=== PATIENT | male | born 1965 | race Caucasian/White ===

== ENCOUNTER 2019-11-30 14:26 | Emergency (ER) | payer MEDICAID ==
[~2019-11-30] VITALS: Ht 177.8 cm; Wt 49.5 kg
[2019-11-30 14:27] VITALS: BP 93/57
--- NOTE | 2019-11-30 14:58 | NUR ---
PT PROVIDED WITH WARM BLANKETS. DENIES ANY FURTHER NEEDS AT THIS TIME. CALL LIGHT IN REACH.
--- NOTE | 2019-11-30 15:28 | NUR ---
REPORT FROM TANMAY RICHARDSON, ASSUME CARE OF PT AT THIS TIME.
--- NOTE | 2019-11-30 16:08 | NUR ---
PT RESTING COMFORTABLY, VISITOR AT BS. PT SELF EMPTIES COLOSTOMY BAG INTO URINAL.
--- NOTE | 2019-11-30 16:11 | NUR ---
CALL TO IR TO INQUIRE ON TIMEFRAME FOR PICC PLACEMENT. IR STATES THEY WILL BE OVER NOW.
--- NOTE | 2019-11-30 16:36 | NUR ---
REPORT FROM DEBRA ALMAGUER.
[2019-12-02] MEDS ORDERED: LOPE2CAP PO (10:47)
== END 2019-11-30 17:11 | disposition home or self-care (01) ==
LOC: ED 16:30
DX: T82.898A Other specified complication of vascular prosthetic devices, implants and grafts, initial encounter (principal); C18.9 Malignant neoplasm of colon, unspecified; Z92.21 Personal history of antineoplastic chemotherapy
CPT/HCPCS: 36573; 99285; C1751

== ENCOUNTER 2019-12-08 18:48 | Emergency (ER) | payer MEDICAID ==
[~2019-12-08] VITALS: Ht 177.8 cm; Wt 52.1 kg
[~2019-12-08 18:48] MED LIST: LOPE2CAP PO
[2019-12-08 20:36] LABS: ALANINE AMINOTRANSFERASE 37 U/L (12-78); ALBUMIN 1.7 g/dL (3.4-5.0); ANION GAP 11 mmol/L (5-15); CALCIUM 8.2 mg/dL (8.5-10.1); CHLORIDE 101 mmol/L (98-107); INTERNATIONAL NORMALIZED RATIO 1.07 (0.93-1.1); PROTHROMBIN TIME 11.4 Seconds (9.6-11.5)
[2019-12-08 20:38] LABS: ALKALINE PHOSPHATASE 498 U/L (45-117); BILIRUBIN,TOTAL 0.8 mg/dL (0.2-1.0); TOTAL PROTEIN 5.6 g/dL (6.4-8.2)
[2019-12-08 20:44] LABS: MD YES; MEAN CORPUSCULAR HEMOGLOBIN 28.6 pg (27.5-34.5); MEAN CORPUSCULAR HGB CONC 31.6 g/dL (33.2-36.2); MEAN CORPUSCULAR VOLUME 90.5 fL (81-97); MEAN PLATELET VOLUME 9.5 fL (7.4-10.4); PLATELET COUNT 207 x10^3/uL (130-400); RED BLOOD COUNT 2.39 x10^6/uL (4.38-5.82); RED CELL DISTRIBUTION WIDTH 20.2 % (9.4-14.8)
[2019-12-08 21:10] VITALS: BP 92/65
[2019-12-08 21:24] LABS: BAND#(MANUAL) 0.17 x10^3/uL; BANDS%(MANUAL) 1 % (0-7); LYMPH#(MANUAL) 0.67 x10^3/uL (1-3.4); LYMPHS% (MANUAL) 4 % (22-44); MONOS#(MANUAL) 0.67 x10^3/uL (0.3-2.7); MONOS% (MANUAL) 4 % (2-9); SEGS% (MANUAL) 91 % (42-75)
[2019-12-08 21:25] VITALS: BP 102/62
[2019-12-08 21:30] LABS: <PLATELET ESTIMATE> ADEQUATE; <PLT MORPHOLOGY> NORMAL PLT MORPH; HYPOCHROMIA 1+; MICROCYTOSIS 1+; OVALOCYTES 1+; POLYCHROMASIA 1+; SCHISTOCYTES 1+
[2019-12-08 21:49] VITALS: BP 111/70
--- NOTE | 2019-12-08 21:51 | NUR ---
PT CRITICAL LAB VALUSE. BLOOD TRANSFUSION IN PROGRESS. PT TOLERATING WELL.
--- NOTE | 2019-12-08 22:01 | NUR ---
REPORT FROM KISHOR ASSUMED CARE OF PT
[2019-12-08 22:17] VITALS: BP 110/62
--- NOTE | 2019-12-08 22:20 | NUR ---
BLOOD TRANSFUSION COMPLETE, PT DISCHARGED TO HOME
--- NOTE | 2019-12-08 22:30 | NUR ---
Patient/Caregiver given discharge instructions and they have confirmed that they understand the instructions. Patient ambulatory with steady gait.
== END 2019-12-08 22:32 | disposition home or self-care (01) ==
LOC: ED 21:55
DX: C79.9 Secondary malignant neoplasm of unspecified site (principal); D62 Acute posthemorrhagic anemia; K92.2 Gastrointestinal hemorrhage, unspecified; N18.9 Chronic kidney disease, unspecified; R06.00 Dyspnea, unspecified; R42 Dizziness and giddiness; E46 Unspecified protein-calorie malnutrition; Z68.1 Body mass index [BMI] 19.9 or less, adult; Z85.038 Personal history of other malignant neoplasm of large intestine
CPT/HCPCS: 36415; 36430; 80053; 85025; 85610; 85730; 86850; 86900; 86923; 99285; P9016

== ENCOUNTER 2019-12-11 17:53 | Inpatient (IN) | payer MEDICAID ==
[~2019-12-11] VITALS: Ht 172.7 cm; Wt 53.3 kg
[2019-12-11] MEDS ORDERED: MORPHINE SULFATE 4 MG/ML, 1ML IVPush PRN (18:00)
[2019-12-11] MEDS ORDERED: DIPHENHYDRAMINE 50 MG/ML, 1ML IVPush ONE (18:00)
[2019-12-11] MEDS ORDERED: MAALOX/HYOSCYAMINE/LIDOCAINE 45 ML BTL PO ONE (18:00)
[2019-12-11] MEDS ORDERED: SODIUM CHLORIDE 0.9% 1,000ML IVBOLUS ONE (18:00)
[2019-12-11] MEDS ORDERED: METOCLOPRAMIDE 5 MG/ML, 2ML IVPush ONE (18:00)
[2019-12-11] MEDS ORDERED: SODIUM CHLORIDE FLUSH 10ML SYR IVF ONE (18:00)
[2019-12-11] MEDS ORDERED: METOCLOPRAMIDE 5 MG/ML, 2ML ONE (18:03)
[2019-12-11] MEDS ORDERED: DIPHENHYDRAMINE 50 MG/ML, 1ML ONE (18:03)
--- NOTE | 2019-12-11 18:17 | NUR ---
PT BIB EMS FOR ABDOMINAL PAIN W N/V. PT STATES PAIN STARTED YESTERDAY "FEELS LIKE THERE IS BATTERY ACID IN MY STOMACH". PT HX OF COLON CANCER W OSTOMY. PT STATES PAIN IS 10/10, TYRING TO GAG AND VOMIT. PT STATES HE HAS PAIN IN HIS FEET. BILAT LLEG EDEMA 2+. PT IS CONSTANTLY USING FOUL LANGUAGE. DENIES CP, SOB, OR COUGH. VSS, HEEL LIFT GOUGER APPLIED. LAW OK TO USE PICC. FLUSHES WELL W BLOOD RETURN. MEDICATED PER ORDERS. LABS DRAWN. CALL LIGHT IN REACH
[2019-12-11] MEDS ORDERED: MAALOX/HYOSCYAMINE/LIDOCAINE 45 ML BTL ONE (18:29)
[2019-12-11] MEDS ORDERED: MORPHINE SULFATE 4 MG/ML, 1ML ONE (18:29)
[2019-12-11 18:33] LABS: ALANINE AMINOTRANSFERASE 45 U/L (12-78); ALBUMIN 1.7 g/dL (3.4-5.0); ANION GAP 14 mmol/L (5-15); CALCIUM 8.2 mg/dL (8.5-10.1); CHLORIDE 96 mmol/L (98-107); CREATININE 1.78 mg/dL (0.7-1.3)
[2019-12-11 18:35] LABS: ALKALINE PHOSPHATASE 579 U/L (45-117); BILIRUBIN,TOTAL 0.8 mg/dL (0.2-1.0); TOTAL PROTEIN 5.2 g/dL (6.4-8.2)
--- NOTE | 2019-12-11 18:39 | NUR ---
MEDICATED FOR PAIN. GIVEN BLANKETS. VSS
[2019-12-11 18:41] LABS: MEAN CORPUSCULAR HEMOGLOBIN 28.9 pg (27.5-34.5); MEAN CORPUSCULAR HGB CONC 32.2 g/dL (33.2-36.2); MEAN PLATELET VOLUME 9.7 fL (7.4-10.4); PLATELET COUNT 210 x10^3/uL (130-400); RED BLOOD COUNT 2.09 x10^6/uL (4.38-5.82); RED CELL DISTRIBUTION WIDTH 20.3 % (9.4-14.8)
[2019-12-11 18:50] LABS: MD YES
--- NOTE | 2019-12-11 19:15 | NUR ---
PATIENT SENT TO CT SCAN, AWARE OF NEED FOR BLOOD TRANSFUSION, VSS. HE REPORTS PAIN HAS APPROVED. AWAITING FOR BLOOD. RN WILL CONTINUE TO MONITOR
--- NOTE | 2019-12-11 19:25 | NUR ---
PATIENT RETURNED FROM CT SCAN, SHEILA BARTLETT. PATIENT SIGNED THE CONSENT FORM, RN EXPLAINED THE RISK AND BENEFITS OF GETTING BLOOD. PATIENT UNDERSTOOD
[2019-12-11 19:43] LABS: BAND#(MANUAL) 1.57 x10^3/uL; BANDS%(MANUAL) 8 % (0-7); LYMPH#(MANUAL) 0.78 x10^3/uL (1-3.4); LYMPHS% (MANUAL) 4 % (22-44); METAMYELOCYTES% (MANUAL) 1 % (0-1); MONOS#(MANUAL) 0.59 x10^3/uL (0.3-2.7); MONOS% (MANUAL) 3 % (2-9); MYELOCYTES% (MANUAL) 1 % (0-0); SEG#(MANUAL) 16.27 x10^3/uL (1.8-6.8); SEGS% (MANUAL) 83 % (42-75)
[2019-12-11 19:49] LABS: HYPOCHROMIA 1+; MICROCYTOSIS 1+; OVALOCYTES 1+; POLYCHROMASIA 1+; TARGET CELLS 1+
[2019-12-11 19:54] LABS: <PLATELET ESTIMATE> ADEQUATE; <PLT MORPHOLOGY> NORMAL PLT MORPH
[2019-12-11 20:12] VITALS: BP 92/56
[2019-12-11 20:31] VITALS: BP 86/50
--- NOTE | 2019-12-11 20:38 | NUR ---
MD AWARE OF PATIENTS BP, PATIENT IS RECIEVING BLOOD AND A LITER OF FLUIDS, TOLERATING IT WELL, WILL CONTINUE TO CLOSELY MONITOR. PATIENT REPORTS PAIN HAS IMPROVED AND DENIES ANY DIZZINESS, LIGHTHEADNESS OR CP
[2019-12-11] MEDS ORDERED: PANTOPRAZOLE 80 MG in SODIUM CHLORIDE 0.9% 50 ML IVPB ONE (21:00)
[2019-12-11] MEDS ORDERED: PANTOPRAZOLE 80 MG in SODIUM CHLORIDE 0.9% 100 ML IV SCH (21:00)
--- NOTE | 2019-12-11 21:10 | NUR ---
CALLED PHARMACY IN REGARDS TO [facility]IP AND BOLUS AWAITING FOR IT TO BE TUBED UP
[2019-12-11 22:00] VITALS: BP 87/59
[2019-12-11] MEDS ORDERED: morphine SULFATE 10 MG/ML, 1ML IVPush PRN (22:30)
[2019-12-11] MEDS ORDERED: ONDANSETRON ODT 4 MG PO PRN (22:30)
[2019-12-11] MEDS ORDERED: SODIUM CHLORIDE 0.9% 1,000 ML IV SCH (22:30)
[2019-12-11] MEDS ORDERED: DOCUSATE 100 MG CAPSULE PO PRN (22:30)
[2019-12-11] MEDS ORDERED: PROMETHAZINE 25 MG/ML, 1ML IM PRN (22:30)
[2019-12-11] MEDS ORDERED: OXYcodone IR 5MG TABLET PO PRN (22:30)
[2019-12-11] MEDS ORDERED: ONDANSETRON 2MG/ML, 2ML IVPush PRN (22:30)
[2019-12-11 23:11] LABS: FREE T4 (FREE THYROXINE) 0.92 ng/dL (0.76-1.46)
[2019-12-12] VITALS (8 sets, daily range): BP systolic 82–96; BP diastolic 49–63
[2019-12-12 00:49] LABS: MICROSCOPIC NOT IND
[2019-12-12 04:11] LABS: CLOSTRIDIUM DIFFICILE ANTIGEN NEGATIVE; CLOSTRIDIUM DIFFICILE TOXIN NEGATIVE (Negative)
[2019-12-12] MEDS ORDERED: SODIUM CHLORIDE 0.9%, 500ML IVBOLUS ONE (05:00)
[2019-12-12 05:38] LABS: ALBUMIN 1.5 g/dL (3.4-5.0); ANION GAP 11 mmol/L (5-15); CALCIUM 7.5 mg/dL (8.5-10.1); CHLORIDE 100 mmol/L (98-107)
[2019-12-12 05:41] LABS: ALANINE AMINOTRANSFERASE 59 U/L (12-78); ALKALINE PHOSPHATASE 445 U/L (45-117); BILIRUBIN,TOTAL 2.6 mg/dL (0.2-1.0); CHOL/HDL RATIO 9.5; CHOLESTEROL, TOTAL 114 mg/dL (140-239); CREATININE 1.65 mg/dL (0.7-1.3); HDL CHOL % 11 % (26-37); HDL CHOLESTEROL (DIRECT) 12 mg/dL (40-60); LDL CHOLESTEROL,CALCULATED 75 mg/dL (54-169); LDL/HDL RATIO 6.3 (0.5-3.0); TRIGLYCERIDES 133 mg/dL (50-200); VLDL CHOLESTEROL 27 mg/dL (0-25)
[2019-12-12] MEDS ORDERED: PANTOPRAZOLE 80 MG in SODIUM CHLORIDE 0.9% 100 ML IV SCH ×2 (07:00→21:00)
[2019-12-12] MEDS ORDERED: SODIUM CHLORIDE 0.9% 1,000 ML IV SCH (07:30)
[2019-12-12] MEDS ORDERED: SODIUM BICARBONATE 8.4% 150 MEQ in DEXTROSE 5% 1,000 ML IV SCH (07:30)
[2019-12-12] MEDS ORDERED: CEFTRIAXONE PMX 1GM/50ML 50 ML IV SCH (07:30)
[2019-12-12] MEDS ORDERED: FLUCONAZOLE 100 MG TABLET PO SCH (09:00)
[2019-12-12] MEDS ORDERED: DEXTROSE 4 GM TAB.CHEW PO PRN (10:30)
[2019-12-12] MEDS ORDERED: GLUCAGON 1 MG IM PRN (10:30)
[2019-12-12] MEDS ORDERED: DEXTROSE 50%, 50ML SYRINGE IVPush PRN (10:30)
[2019-12-12] MEDS ORDERED: SODIUM CHLORIDE FLUSH 10ML SYR IVF SCH (10:30)
[2019-12-12 12:16] LABS: MICROSCOPIC NOT IND
== END 2019-12-12 13:58 | disposition left against medical advice (07) | DRG 241 ==
LOC: ED 21:08 → EDIP 21:30 → 3WST 22:00 → 4WST 12-12 00:32
PROVIDERS: ADMIT Internal Medicine; ATTEND Hospitalist
PROC: 30233N1 Transfusion of Nonautologous Red Blood Cells into Peripheral Vein, Percutaneous Approach (ICD-10-PCS; principal; 2019-12-11)
DX: K28.4 Chronic or unspecified gastrojejunal ulcer with hemorrhage (principal); N17.0 Acute kidney failure with tubular necrosis; E43 Unspecified severe protein-calorie malnutrition; K85.90 Acute pancreatitis without necrosis or infection, unspecified; B37.81 Candidal esophagitis; E87.1 Hypo-osmolality and hyponatremia; D62 Acute posthemorrhagic anemia; E87.2 Acidosis; C18.9 Malignant neoplasm of colon, unspecified; C78.7 Secondary malignant neoplasm of liver and intrahepatic bile duct; Z68.1 Body mass index [BMI] 19.9 or less, adult; Z53.29 Procedure and treatment not carried out because of patient's decision for other reasons; E87.5 Hyperkalemia; E16.2 Hypoglycemia, unspecified; D72.825 Bandemia; N18.9 Chronic kidney disease, unspecified; Z51.5 Encounter for palliative care; F17.200 Nicotine dependence, unspecified, uncomplicated; Z90.49 Acquired absence of other specified parts of digestive tract; Z93.3 Colostomy status
CPT/HCPCS: 36415; 36430; 74176; 80053; 80061; 81003; 83036; 83605; 83690; 83735; 84439; 84443; 85014; 85018; 85025; 86850; 86900; 86923; 87040; 87324; 93005; 96361; 96374; 96375; G0378; J0696; J7070; C9113; J1200; J2270; J2765; J7030; J7040; P9016